=== PATIENT | male | born 1980 | race Hispanic/Latino ===

== ENCOUNTER 2019-10-26 00:29 | Emergency (ER) | payer OTHER ==
[2019-10-26] MEDS ORDERED: dexAMETHasone 10 MG/ML VIAL ONE (01:21)
[2019-10-26] MEDS ORDERED: KETOROLAC 30 MG/ML INJ ONE (01:21)
[2019-10-26] MEDS ORDERED: CYCLOBENZAPRINE 10 MG TAB ONE (01:21)
--- NOTE | 2019-10-26 01:38 | ER ---
Nurse's Notes [facility] Name: Kiran Barajas Age: 39 yrs Sex: Male : 1980 Arrival Date: 10/26/2019 Time: 00:32 Bed 13 Private MD: Diagnosis: Radiculopathy, lumbosacral region Presentation: 10/25 00:30 Chief complaint: Patient states: Left sided low back and left hip pain that radiates to sg the left thigh, pt reports pain started and worsened while at work yesterday, pt denies injury or trauma, reports having nerve type pain. Coronavirus screen: Patient denies a cough. Patient denies shortness of breath or difficulty breathing. Patient denies measured and/or subjective temperature greater than 100.4F prior to today's visit. Patient denies travel on a cruise ship or to a country the [facility] currently lists as an affected area. Patient denies contact with known and/or suspected case of COVID-19. Proceed with normal triage. Ebola Screen: Patient negative for fever greater than or equal to 101.5 degrees Fahrenheit, and additional compatible Ebola Virus Disease symptoms Patient denies exposure to infectious person. Patient denies travel to an Ebola-affected area in the 21 days before illness onset. No symptoms or risks identified at this time. Initial Sepsis Screen: Does the patient meet any 2 criteria? No. Patient's initial sepsis screen is negative. Does the patient have a suspected source of infection? No. Patient's initial sepsis screen is negative. Risk Assessment: Do you want to hurt yourself or someone else? Patient reports no desire to harm self or others. Onset of symptoms was October 26, 2019. Care prior to arrival: None. 00:30 Method Of Arrival: Ambulatory sg 00:30 Acuity: GENARO 4 sg Historical: - Allergies: 00:45 No Known Allergies; sg - Home Meds: 00:45 lisinopril 5 mg Oral tab 1 tab once daily [Active]; sg - PMHx: 00:45 Hypertension; sg - PSHx: 00:45 None; sg - Immunization history:: Adult Immunizations up to date. - Social history:: Smoking status: Patient denies any tobacco usage or history of. - Family history:: not pertinent. - Hospitalizations: : No recent hospitalization is reported. Screenin:45 Abuse screen: Denies threats or abuse. Nutritional screening: No deficits noted. mt2 Tuberculosis screening: No symptoms or risk factors identified. Fall Risk None identified. Assessment: 00:45 Reassessment: Patient and/or family updated on plan of care and expected duration. Pain mt2 level reassessed. Patient is alert, oriented x 3, equal unlabored respirations, skin warm/dry/pink. Pain: Complains of pain in left lower back and left gluteal fold Pain currently is 10 out of 10 on a pain scale. Neuro: No deficits noted. Cardiovascular: No deficits noted. Respiratory: No deficits noted. GI: No deficits noted. : No deficits noted. EENT: No deficits noted. Derm: No deficits noted. Musculoskeletal: Reports pain in left lower back, left gluteus aysha and left gluteal fold. 01:57 Reassessment: Patient and/or family updated on plan of care and expected duration. Pain mt2 level reassessed. Patient is alert, oriented x 3, equal unlabored respirations, skin warm/dry/pink. Patient denies pain at this time. General: Appears comfortable, Behavior is cooperative. Vital Signs: 00:41 BP 131 / 87; Pulse 81; Resp 16; Temp 98.1(O); Pulse Ox 99% ; Pain 10/10; mt2 01:57 BP 122 / 95; Pulse 71; Resp 16; Pulse Ox 97% ; Pain 0/10; mt2 ED Course: 00:30 Arm band placed on. sg 00:32 Patient arrived in ED. bp1 00:35 Taj Gao MD is Attending Physician. rn 00:42 Kate Pimentel RN is Primary Nurse. mt2 00:44 Triage completed. sg 00:45 Patient has correct armband on for positive identification. Placed in gown. Bed in low mt2 position. Call light in reach. Side rails up X 1. 01:18 Patient did not have IV access during this emergency room visit. mt2 01:57 No provider procedures requiring assistance completed. mt2 Administered Medications: 01:08 Drug: Flexeril 10 mg Route: PO; mt2 01:58 Follow up: Response: No adverse reaction; Pain is decreased mt2 01:08 Drug: Decadron 10 mg Route: IM; Site: left deltoid; mt2 01:58 Follow up: Response: No adverse reaction; Pain is decreased mt2 01:08 Drug: TORadol - Ketorolac 15 mg Route: IM; Site: left deltoid; mt2 01:58 Follow up: Response: No adverse reaction; Pain is decreased mt2 Outcome: 01:37 Discharge ordered by . edd 01:57 Discharged to home mt2 01:57 Condition: good 01:57 Discharge instructions given to patient, Instructed on discharge instructions, follow up and referral plans. medication usage, Demonstrated understanding of instructions, follow-up care, medications, Prescriptions given X 2. 01:58 Patient left the ED. mt2 Signatures: Abdirahman Corrales RN RN sg Nieto, Roman, MD MD rn Paniauga, Brittany bp1 Toscano, Marlene, RN RN mt2
--- NOTE | 2019-10-26 01:38 | EDPHYS ---
Physician Documentation [facility] Name: Kiran Barajas Age: 39 yrs Sex: Male : 1980 Arrival Date: 10/26/2019 Time: 00:32 Bed 13 Private MD: ED Physician Taj Gao HPI: 10/25 01:14 This 39 yrs old Male presents to ER via Ambulatory with complaints of Nerve rn Pain in waist and leg. 01:14 The patient presents with pain, that is acute. The complaints affect the . Onset: The rn symptoms/episode began/occurred yesterday. Modifying factors: The symptoms are alleviated by remaining still, the symptoms are aggravated by movement. Severity of symptoms: At their worst the symptoms were moderate, in the emergency department the symptoms have improved. The patient has experienced a previous episode. 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 NO fever. NO spine pain. No weakness of leg. . Historical: - Allergies: 00:45 No Known Allergies; sg - Home Meds: 00:45 lisinopril 5 mg Oral tab 1 tab once daily [Active]; sg - PMHx: 00:45 Hypertension; sg - PSHx: 00:45 None; sg - Immunization history:: Adult Immunizations up to date. - Social history:: Smoking status: Patient denies any tobacco usage or history of. - Family history:: not pertinent. - Hospitalizations: : No recent hospitalization is reported. ROS: 01:14 Constitutional: Negative for fever, chills, and weight loss, Eyes: Negative for injury, rn pain, redness, and discharge, Cardiovascular: Negative for chest pain, palpitations, and edema, Respiratory: Negative for shortness of breath, cough, wheezing, and pleuritic chest pain, Abdomen/GI: Negative for abdominal pain, nausea, vomiting, diarrhea, and constipation, Back: + left lower back pain, negative for injury MS/Extremity: Negative for injury and deformity, Skin: Negative for injury, rash, and discoloration, Neuro: Negative for headache, weakness, and seizure. Exam: 01:14 Constitutional: This is a well developed, well nourished patient who is awake, alert, rn and in no acute distress. Ambulatory to room without difficulty or assistance. Head/Face: Normocephalic, atraumatic. Back: No spinal tenderness. Skin: Warm, dry MS/ Extremity: Pulses equal, no cyanosis. Neurovascular intact. Full, normal range of motion. Equal circumference. Neuro: Awake and alert, GCS 15, oriented to person, place, time, and situation. Cranial nerves II-XII grossly intact. Motor strength 5/5 in all extremities. Sensory grossly intact. Cerebellar exam normal. Normal gait. Vital Signs: 00:41 BP 131 / 87; Pulse 81; Resp 16; Temp 98.1(O); Pulse Ox 99% ; Pain 10/10; mt2 01:57 BP 122 / 95; Pulse 71; Resp 16; Pulse Ox 97% ; Pain 0/10; mt2 MDM: 00:35 Patient medically screened. rn 01:36 Differential diagnosis: radiculopathy. Data reviewed: vital signs, nurses notes, and as rn a result, I will discharge patient. Counseling: I had a detailed discussion with the patient and/or guardian regarding: the historical points, exam findings, and any diagnostic results supporting the discharge/admit diagnosis, the need for outpatient follow up, to return to the emergency department if symptoms worsen or persist or if there are any questions or concerns that arise at home. Special discussion: I discussed with the patient/guardian in detail that at this point there is no indication for admission to the hospital. It is understood, however, that if the symptoms persist or worsen the patient needs to return immediately for re-evaluation. Administered Medications: 01:08 Drug: Flexeril 10 mg Route: PO; mt2 01:58 Follow up: Response: No adverse reaction; Pain is decreased mt2 01:08 Drug: Decadron 10 mg Route: IM; Site: left deltoid; mt2 01:58 Follow up: Response: No adverse reaction; Pain is decreased mt2 01:08 Drug: TORadol - Ketorolac 15 mg Route: IM; Site: left deltoid; mt2 01:58 Follow up: Response: No adverse reaction; Pain is decreased mt2 Disposition: 10/26/19 01:37 Discharged to Home. Impression: Radiculopathy, lumbosacral region. - Condition is Stable. - Discharge Instructions: Lumbosacral Radiculopathy. - Prescriptions for Cyclobenzaprine 10 mg Oral Tablet - take 1 tablet by ORAL route every 8 hours As needed; 15 tablet. Medrol (Robert) 4 mg Oral Tablets, Dose Pack - take 1 tablet by ORAL route as directed - follow package instructions; 1 packet. - Medication Reconciliation Form, Thank You Letter, Antibiotic Education, Prescription Opioid Use, Work release form form. - Follow up: Private Physician; When: As needed; Reason: Recheck today's complaints, Re-evaluation by your physician. - Problem is new. - Symptoms are unchanged. Signatures: Abdirahman Corrales RN RN Taj Gao MD MD rn Toscano, Marlene, RN RN mt2 Corrections: (The following items were deleted from the chart) 01:58 01:37 10/26/2019 01:37 Discharged to Home. Impression: Radiculopathy, lumbosacral mt2 region. Condition is Stable. Forms are Medication Reconciliation Form, Thank You Letter, Antibiotic Education, Prescription Opioid Use. Follow up: Private Physician; When: As needed; Reason: Recheck today's complaints, Re-evaluation by your physician. Problem is new. Symptoms are unchanged. rn
[2019-10-26 02:04] VITALS: TEMP 98.1
[2019-10-26 02:05] VITALS: BP 122/95; O2SAT 97
== END 2019-10-26 01:58 | disposition home or self-care (01) ==
LOC: ER 00:29
DX: M54.17 Radiculopathy, lumbosacral region (principal); I10 Essential (primary) hypertension
CPT/HCPCS: 96372; 99283; J1100

== ENCOUNTER 2023-07-07 15:05 | Emergency (ER) | payer SELFPAY ==
--- OUTSIDE RECORDS SUMMARY | 2023-07-07 15:08 | XMS REPORT | Continuity of Care Document ---
Author Name Unknown Address [address] [place] [address] [facility] Address [address] [place] [address] Care Team Providers Care Rural Carrier Name Role Phone GHULAM HUDSON Attending Clinician Unavailable NORTH SERNA Attending Clinician Unavailable Payers Payer Name Policy Type Policy Number Effective Date Expirati on Date Source [facility] ON 9 [id number] 2023 00:00:00 [facility] 2 [id number] 2022 00:00:00 Problems Condition Name Condition Details Condition Category Status Onset Date Resolution Date Last Treatment Date Treating Clinician Comments Source Hypertensi on Hypertensi on Disease Active 11-24 00:00: 00 Quang Spaulding - Externa l Overweight (BMI 25.0-29.9) Overweight (BMI 25.0-29.9) Disease Active 11-24 00:00: 00 Quang Spaulding - Externa l Dizziness Dizziness Disease Active 11-24 00:00: 00 Quang Guerraold - Externa l Social History Social Habit Start Date Stop Date Quantity Comments Source Gender identity Lisa Spaulding - External Sexual orientation Romina Spaulding - External Alcohol intake 2022-11-24 00:00:00 2022-11-24 00:00:00 .86 /d Quang Spaulding - External History of Social function 2022-11-24 00:00:00 2022-11-24 00:00:00 Quang Casanova Education - What is the highest level of school you have completed or the highest degree you have received? 2022-11-24 00:00:00 2022-11-24 00:00:00 Associate degree: academic program Quang Casanova Tobacco use and exposure 2022-11-23 00:00:00 2022-11-23 00:00:00 Smokeless tobacco non-user Quang Casanova Alcohol Comment 2022-11-23 00:00:00 2022-11-23 00:00:00 socially Quang Casanova Sex Assigned At 1980 00:00:00 1980 00:00:00 Quang Casanova Smoking Status Start Date Stop Date Source Never smoked tobacco Quang Casanova Medications Ordered Medication Name Filled Medication Name Start Date Stop Date Current Medication? Ordering Clinician Indication Dosage Frequency Signature (SIG) Comments Components Source Lisinopril 10 MG oral Tablet 04-28 00:00: 00 Yes [id number] 10mg Take 1 tablet (10 mg total) by mouth daily. Quang Mcclendona l Lisinopril 10 MG oral Tablet 11-24 00:00: 00 04-28 00:00 :00 No [id number] 10mg Take 1 tablet (10 mg total) by mouth daily. Quagn Mcclendona l Lisinopril 20 MG oral Tablet 11-16 00:00: 00 11-24 00:00 :00 No 20mg Take 1 tablet (20 mg total) by mouth daily. Quang Flores l Immunizations Ordered Immunization Name Filled Immunization Name Date Status Comments Source Covid-19 Vaccine (Lam) 2020-04-29 00:00:00 Completed Quang Morales External Covid-19 Vaccine (Lam) Unknown Completed Quang Casanova Vital Signs Vital Name Observation Time Observation Value Comments S prasanth Systolic blood pressure 2023-04-28 22:41:00 132 mm[Hg] Quang Spence ld - External Diastolic blood pressure 2023-04-28 22:41:00 97 mm[Hg] Quang pelayo - External Systolic blood pressure 2022-11-24 14:33:00 105 mm[Hg] Quang Spence ld - External Diastolic blood pressure 2022-11-24 14:33:00 70 mm[Hg] Quang Spence ld - External Respiratory rate 2022-11-24 13:55:00 20 /min Quang Spaulding - External Body height 2022-11-24 13:55:00 165.1 cm Lisa Spaulding - External Body weight 2022-11-24 13:55:00 79.379 kg Lisa Spaulding - External BMI 2022-11-24 13:55:00 29.12 kg/m2 Lisa Spaulding - External Encounters Start Date/Time End Date/Time Encounter Type Admission Type Attending [facility] Care Department Encounter ID Source 2023-07-07 00:00:00 2023-07-07 00:00:00 Outpatient GHULAM HUDSON [id number] Quang Spaulding 2023-05-26 00:00:00 2023-05-26 00:00:00 Outpatient GHULAM HUDSON [id number] Quang Nixkenneth 2023-05-25 00:00:00 2023-05-25 00:00:00 Outpatient NORTH SERNA [id number] Quang Nixkenneth 2023-04-28 16:30:00 2023-04-28 16:30:00 Outpatient NORTH SERNA [id number] Quang Nixkenneth 2023-01-07 00:00:00 2023-01-07 00:00:00 Outpatient GHULAM HUDSON [id number] Quang Nixkenneth 2022-12-30 08:00:00 2022-12-30 08:00:00 Outpatient GHULAM HUDSON [id number] Quang Spaulding 2022-12-04 00:00:00 2022-12-04 00:00:00 Outpatient GHULAM HUDSON [id number] Quang Spaulding 2022-11-24 08:15:00 2022-11-24 08:15:00 Out[facility] [id number] [facility]22-11-23 00:00:00 2022-11-23 00:00:00 Outpatient TRISTANGHULAM QUANG [id number] Quang Sesharon 2022-11-09 15:52:01 2022-11-09 15:52:01 Outpatient [facility] [id number] Jorge Cardenas 2022-10-19 15:54:37 2022-10-19 15:54:37 Outpatient [facility] [id number] Jorge Cardenas Notes Date/Time Note Provider Source 2022-11-24 08:56:16 [id number]:56:16 Patient here to establish [facility] and [facility] [id number]:01:08Nurse [id number] for patient [id number] NoteLNSt. Francis [facility] Center[address] [facility] [id number] [id number] [facility]"
--- NOTE | 2023-07-07 16:15 | RAD REPORT ---
EXAM DESCRIPTION: CT - Head Brain Wo Cont - 07/07/2023 3:51 pm CLINICAL HISTORY: Syncope COMPARISON: none TECHNIQUE: Computed axial tomography of the head was obtained. IV contrast was not requested. All CT scans are performed using dose optimization technique as appropriate and may include automated exposure control or mA/KV adjustment according to patient size. FINDINGS: An intracranial bleed is not seen The ventricles are normal in caliber No significant hypodense areas within the brain visualized No extra-axial fluid collection is noted. Fluid within the sinuses/ mastoids is not seen IMPRESSION: No acute intracranial abnormality is seen If patient's symptoms persist MRI of the brain would be recommended
--- NOTE | 2023-07-07 16:26 | RAD REPORT ---
EXAM DESCRIPTION: CT - Facial Bones W/ Mpr - 07/07/2023 4:17 pm CLINICAL HISTORY: Facial injury with pain COMPARISON: None TECHNIQUE: Computed axial tomography of the face was obtained. Coronal and sagittal reconstruction w as performed. All CT scans are performed using dose optimization technique as appropriate and may include automated exposure control or mA/KV adjustment according to patient size. FINDINGS: A fracture is not seen. A TMJ dislocation is not noted. The globes are intact. Fluid within the sinuses is not seen. IMPRESSION: Negative for a facial fracture.
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
--- NOTE | 2023-07-07 16:35 | ER ---
Nurse's Notes [facility] Name: Kiran Barajas Age: 42 yrs Sex: Male : 1980 Arrival Date: 07/07/2023 Time: 15:05 Bed IW1 Private MD: Diagnosis: Unspecified injury of head, initial encounter;Contusion of face Presentation: 07/06 15:27 Chief complaint: Patient states: Fall this Wednesday, about 2am. Does not remember what nj1 happened, just that he entered in the [employer] but does not remember what happened after that, "i may passed out". Complains of pain in the face. Coronavirus screen: Vaccine status: Patient reports receiving the 2nd dose of the covid vaccine. Ebola Screen: Patient denies travel to an Ebola-affected area in the 21 days before illness onset. Initial Sepsis Screen: Does the patient meet any 2 criteria? No. Patient's initial sepsis screen is negative. Does the patient have a suspected source of infection? No. Patient's initial sepsis screen is negative. Risk Assessment: Do you want to hurt yourself or someone else? Patient reports no desire to harm self or others. Onset of symptoms was July 03, 2023. 15:27 Method Of Arrival: Ambulatory [facility] 15:27 Acuity: GENARO 3 nj1 Historical: - Allergies: 15:32 No Known Allergies; nj1 - PMHx: 15:32 Hypertension; nj1 - Immunization history:: Client reports receiving the 2nd dose of the Covid vaccine. - Infectious Disease History:: Denies. - Social history:: Smoking status: Patient denies any tobacco usage or history of. Assessment: 16:50 Reassessment: Patient appears in no apparent distress at this time. Patient is alert, nj1 oriented x 3, equal unlabored respirations, skin warm/dry/pink. Vital Signs: 15:27 BP 169 / 108; Pulse 82; Resp 18; Temp 98.1(TE); Pulse Ox 100% on R/A; Weight 77.11 kg; nj1 Height 5 ft. 5 in. ; Pain 9/10; 16:49 BP 159 / 112; Pulse 75; Resp 18; Temp 97.7(TE); Pulse Ox 99% ; Pain 5/10; nj1 15:27 Body Mass Index 28.29 (77.11 kg, 165.1 cm) nj1 15:27 Pain Scale: Adult nj1 16:49 Pain Scale: Adult nj1 ED Course: 15:07 Patient arrived in ED. mr 15:08 Kimmy Beatty FNP-C is [facility]. kb 15:08 Ozzy Marte MD is Attending Physician. kb 15:32 Triage completed. nj1 15:32 Arm band placed on right wrist. nj1 15:53 CT Head Brain wo Cont In Process Unspecified. EDMS 15:53 CT Facial Bones W/O Con In Process Unspecified. EDMS 16:50 Notified Nurse Practitioner and/or Physician Manager Transmission of vital signs. Ok to go ahead nj1 with discharge per Romina Beatty PROTECTION SPECIALIST. 16:54 Provided Education on: discharge instructions. nj1 16:54 Patient did not have IV access during this emergency room visit. nj1 Administered Medications: No medications were administered Outcome: 16:35 Discharge ordered by MD. kb 16:51 Discharged to home ambulatory, nj1 16:51 Condition: stable 16:51 Discharge instructions given to patient, Instructed on discharge instructions, follow up and referral plans. safety practices, Demonstrated understanding of instructions, follow-up care, 16:55 Patient left the ED. nj1 Signatures: Dispatcher [employer] EDIN Kimmy Beatty FNP-C POLISHER HAND-Camilla Lyn, Reg Reg Kimberly Grimm, RN RN nj1 Corrections: (The following items were deleted from the chart) 15:32 15:27 Pulse 82bpm; Resp 18bpm; Pulse Ox 100% RA; Temp 98.1F Temporal; 77.11 kg; Height nj1 5 ft. 5 in.; BMI: 28.2; Pain 9/10, Adult; nj1
[2023-07-07 19:48] VITALS: BP 159/112; TEMP 97.7; O2SAT 99
== END 2023-07-07 16:55 | disposition home or self-care (01) ==
LOC: ER 15:05
DX: S00.83XA Contusion of other part of head, initial encounter (principal)
CPT/HCPCS: 70450; 70486; 76377